=== PATIENT | male | born 1965 | race African-American/Black ===

== ENCOUNTER 2016-09-07 11:36 | Inpatient (IN) | payer BC ==
[~2016-09-07] VITALS: Ht 177.8 cm; Wt 59.0 kg
[~2016-09-07 11:36] MED LIST: DURAGESIC100 MCG/HR TOP; FUROSEMIDE20 MG PO; HYDROMORPHONE HY4 MG PO; KLOR-CON M2020 MEQ PO; LOMOTIL1 TAB PO; ONDANSETRON ODT8 M1 PO
[2016-09-07 12:16] LABS: PLATELET COUNT 154 x10^3mcL (130-400)
[2016-09-07 12:19] LABS: RED CELL DISTRIBUTION WIDTH 15.9 % (11.5-14.5)
[2016-09-07 12:21] LABS: CALCIUM 8.6 mg/dL (8.5-10.1); CARBON DIOXIDE 22.9 mmol/L (21-32); CHLORIDE SERUM 103 mmol/L (98-107); CREATININE SERUM 0.8 mg/dL (0.7-1.3); GFR1 > 60 mL/min; GLUCOSE SERUM 78 mg/dL (74-106); SODIUM SERUM 135 mmol/L (136-145)
[2016-09-07] MEDS ORDERED: PANTOPRAZOLE SO40 M1 PO (12:25)
[2016-09-07] MEDS ORDERED: CYMBALTA30 M1 PO (12:25)
[2016-09-07 12:26] LABS: ALKALINE PHOSPHATASE 206 U/L (46-116); ALT/SGPT 58 U/L (16-63); AST/SGOT 69 U/L (15-37); BILIRUBIN TOTAL 0.61 mg/dL (0.20-1.00); TOTAL PROTEIN, SERUM 6.2 g/dL (6.4-8.2)
[2016-09-07 12:27] LABS: ALBUMIN 2.6 g/dL (3.4-5.0)
[2016-09-07 14:10] VITALS: BP 163/77
[2016-09-07 14:19] LABS: T3 TOTAL 1.02 ng/mL
[2016-09-07 15:10] LABS: FREE T4 0.95 ng/dL (0.76-1.46); FREE THYROXINE INDEX 2.3 ug/dL (1.4-4.5); T4(THYROXINE) 6.9 ug/dL (4.7-13.3)
[2016-09-07 15:36] LABS: CHOLESTEROL/HDL RATIO 1.7; MAGNESIUM 1.6 mg/dL (1.8-2.4); PHOSPHOROUS 3.4 mg/dL (2.5-4.9)
[2016-09-07 17:59] VITALS: BP 153/86
[2016-09-07 20:55] LABS: microscopic required? NO
[2016-09-07 21:02] LABS: UA SPECIFIC GRAVITY 1.015 (1.005-1.035); urine erythrocyte NEGATIVE (NEGATIVE)
[2016-09-07 21:04] VITALS: BP 154/96
[2016-09-07 21:14] LABS: AMPHETAMINE QUAL UR NONE DETECTED (NEG <=1000)
[2016-09-08 06:01] VITALS: BP 105/76
[2016-09-08 06:17] LABS: BASOPHIL % 0.5 % (0-2); PLATELET COUNT 131 x10^3mcL (130-400)
[2016-09-08 06:31] LABS: CARBON DIOXIDE 25.4 mmol/L (21-32); CHLORIDE SERUM 106 mmol/L (98-107); CREATININE SERUM 0.7 mg/dL (0.7-1.3); GFR1 > 60 mL/min; GLUCOSE SERUM 97 mg/dL (74-106); MAGNESIUM 1.9 mg/dL (1.8-2.4); PHOSPHOROUS 3.7 mg/dL (2.5-4.9); POTASSIUM SERUM 3.7 mmol/L (3.5-5.1); SODIUM SERUM 137 mmol/L (136-145)
[2016-09-08 07:00] LABS: RED CELL DISTRIBUTION WIDTH 15.5 % (11.5-14.5)
[2016-09-08 07:47] LABS: rbc morphology (normal/abnorm) ABNORMAL (NORMAL)
[2016-09-08 11:07] VITALS: BP 105/76
[2016-09-08 12:58] VITALS: BP 126/82
== END 2016-09-08 15:11 | disposition home or self-care (01) | DRG 73 ==
LOC: ED 11:36 → DU 13:02
PROVIDERS: Emergency Medicine; ADMIT Family Medicine
DX: G90.9 Disorder of the autonomic nervous system, unspecified (principal); E43 Unspecified severe protein-calorie malnutrition; C25.9 Malignant neoplasm of pancreas, unspecified; E87.1 Hypo-osmolality and hyponatremia; D68.69 Other thrombophilia; Z68.1 Body mass index [BMI] 19.9 or less, adult; E11.51 Type 2 diabetes mellitus with diabetic peripheral angiopathy without gangrene; E11.42 Type 2 diabetes mellitus with diabetic polyneuropathy; E83.42 Hypomagnesemia; I10 Essential (primary) hypertension; D63.8 Anemia in other chronic diseases classified elsewhere; M62.50 Muscle wasting and atrophy, not elsewhere classified, unspecified site; R19.7 Diarrhea, unspecified; E78.00 Pure hypercholesterolemia, unspecified; Z96.653 Presence of artificial knee joint, bilateral; F17.210 Nicotine dependence, cigarettes, uncomplicated; D50.9 Iron deficiency anemia, unspecified; K82.8 Other specified diseases of gallbladder; Z96.89 Presence of other specified functional implants; F12.10 Cannabis abuse, uncomplicated; Z88.8 Allergy status to other drugs, medicaments and biological substances; Z85.07 Personal history of malignant neoplasm of pancreas; Z82.49 Family history of ischemic heart disease and other diseases of the circulatory system
CPT/HCPCS: 83880; 84439; J2405; J3010; J3475; J7030; Q0092